=== PATIENT | female | born 1935 | race Caucasian/White ===

== ENCOUNTER → 2017-08-02 | Outpatient (REF) | payer MEDICARE ==
[2017-08-08 09:18] LABS: HPV HYBRID CAPTURE II Negative (Negative)
== END ==
LOC: M LAB REF 17:40
DX: Z12.4 Encounter for screening for malignant neoplasm of cervix (principal)
CPT/HCPCS: G0123

== ENCOUNTER 2017-09-10 05:51 | Day surgery (SDC) | payer MEDICARE ==
[2017-09-10] MEDS ORDERED: LIDOCAINE 1% MDV 20ML VIAL SC (06:15)
[2017-09-10 06:29] LABS: INR 1.07
[2017-09-10] MEDS ORDERED: MIDAZOLAM INJ 2 MG/2 ML VIAL (J2250) As Ordered (07:04)
[2017-09-10] MEDS ORDERED: fentaNYL 100 MCG/2 ML INJECTION (J3010) As Ordered (07:04)
[2017-09-10] MEDS ORDERED: PROPOFOL 200 MG/20 ML VIAL As Ordered (07:06)
[2017-09-10] MEDS ORDERED: LIDOCAINE 2% INJ 100 MG/5 ML SDV (FOR ANES.) As Ordered (07:06)
[2017-09-10] MEDS: LR 1,000 ML IV (07:19)
[2017-09-10] MEDS: LIDOCAINE 1% SDV INJ 30 ML VIAL As Ordered (07:54)
[2017-09-10] MEDS ORDERED: dexameTHASONE 4 MG/ML 1ML VIAL (J1100) As Ordered (07:56)
[2017-09-10] MEDS ORDERED: LR 1,000 ML IV ×2 (09:00)
[2017-09-10] MEDS ORDERED: ONDANSETRON 4MG/2ML VIAL (J2405) IV (09:00)
[2017-09-10] MEDS ORDERED: fentaNYL 100 MCG/2 ML INJECTION (J3010) IV (09:00)
[2017-09-10] MEDS: ACETAMINOPHEN 500 MG TAB PO (09:00)
[2017-09-10] MEDS ORDERED: NORCO, ANEXSIA 5/325MG TABLET (HYDROcodone/ACETAMINOPHEN) PO (09:00)
== END 2017-09-10 09:15 | disposition home or self-care (01) ==
LOC: M SDC 05:51
DX: N95.0 Postmenopausal bleeding (principal); I10 Essential (primary) hypertension; I48.91 Unspecified atrial fibrillation; K21.9 Gastro-esophageal reflux disease without esophagitis; M81.0 Age-related osteoporosis without current pathological fracture; Z85.3 Personal history of malignant neoplasm of breast; Z79.82 Long term (current) use of aspirin; Z79.899 Other long term (current) drug therapy
CPT/HCPCS: 58558